=== PATIENT | female | born 1990 | race American Indian/Alaskan Native ===

== ENCOUNTER 2020-01-10 05:56 | Day surgery (SDC) | payer OTHER ==
[~2020-01-10 05:56] MED LIST: SODIUM CHLORIDE 0.9% 1000 ML 1,000 ML, EPINEPHrine/PF 1:1,000 1 MG, LIDOCAINE 1% 20 mL ... IJ SCH
[2020-01-10] MEDS ORDERED: ceFAZolin/Water 2 GM/20 ML 2 GM/20 ML SYRINGE IV NR (06:00)
[2020-01-10] MEDS ORDERED: LACTATED RINGERS 1,000 ML IV SCH (07:00)
--- NOTE | 2020-01-10 07:03 | Anesthesia Day of Surgery ---
Anesthesia Day of Surgery - Day of Surgery Patient Examined: Yes Patient H&P Reviewed: Yes Patient is NPO: Yes
[2020-01-10] MEDS ORDERED: ACETAMINOPHEN 500 MG TAB PO ONE (07:04)
[2020-01-10] MEDS ORDERED: MAGNESIUM OXIDE 400 MG TAB PO ONE (07:04)
[2020-01-10] MEDS ORDERED: ONDANSETRON 4 MG/2 ML INJ IV PRN (07:04)
--- NOTE | 2020-01-10 07:08 | Anesthesia Consultation ---
Anesthesia Consult and Med Hx Date of service: 01/10/20 - Airway Anesthetic Teeth Evaluation: Good ROM Head & Neck: Adequate Mental/Hyoid Distance: Adequate Mallampati Class: Class III Intubation Access Assessment: Probably Good - Pre-Operative Health Status ASA Pre-Surgery Classification: ASA2 Proposed Anesthetic Plan: General - Central Nervous System Hx Psychiatric Problems: No - Hematic Hx Anemia: Yes (LAST HGB 12.9 (12/19/2019)) - Other Systems Hx Alcohol Use: Yes ([facility]) Hx Substance Use: No Hx Cancer: No
[2020-01-10] MEDS ORDERED: LIDOCAINE 1%/EPINEPHRINE 1:100,000 VIAL (20 ML) INFILTRATI ONE ×2 (07:15→09:23)
[2020-01-10] MEDS ORDERED: ROCURONIUM 50 MG/5 ML INJ IV ONE ×2 (07:28→09:35)
[2020-01-10] MEDS ORDERED: fentaNYL 100 MCG/2 ML INJ ONE (07:28)
[2020-01-10] MEDS ORDERED: ONDANSETRON 4 MG/2 ML INJ ONE (07:28)
[2020-01-10] MEDS ORDERED: LIDOCAINE MPF (2%) 20 MG/1 ML VIAL 5 ML ONE (07:28)
[2020-01-10] MEDS ORDERED: dexAMETHasone 20 MG/5 ML VIAL ONE (07:28)
[2020-01-10] MEDS ORDERED: HYDROmorphone 1 MG/1 ML INJ ONE (07:28)
[2020-01-10] MEDS ORDERED: propofoL 200 MG/20 ML VIAL IV ONE (07:28)
[2020-01-10] MEDS ORDERED: CELECOXIB 200 MG CAP PO NR (08:00)
[2020-01-10] MEDS ORDERED: MIDAZOLAM 2 MG/2 ML INJ IV NR (08:00)
[2020-01-10] MEDS ORDERED: GABAPENTIN 300 MG CAP PO NR (08:00)
[2020-01-10] MEDS ORDERED: PHENYLEPHRINE/NS 1,000 MCG/10 ML SYRINGE (OR USE) IV ONE ×2 (09:20→12:13)
[2020-01-10] MEDS ORDERED: SODIUM CHLORIDE 0.9% IRR 1,500 ML BOTTLE IR ONE (09:23)
[2020-01-10] MEDS ORDERED: methOCARBAMOL 1,000 MG in SODIUM CHLORIDE 0.9% 250ML 250 ML IV STA (13:41)
[2020-01-10] MEDS: HYDROmorphone 1 MG/1 ML INJ IV PRN ×3 (13:45→14:10)
--- NOTE | 2020-01-10 13:47 | Operative Report ---
Operative Report Operative Report: Plastic Surgery Operative Note Preoperative Diagnosis: Unacceptable cosmetic appearance Postopertive Diagnosis: Same Procedure: Bilateral mastopexy; Full lipoabdominoplasty Surgeon: Dr. Missy Veliz Pecan Gatherer: Marisel Fernandez CFA Anesthesia: General endotracheal EBL: Minimal Indications: This patient is a 29 year old AAF who presented with complaint of breast drooping since having children. She was also interested in removing excess fat and skin of the lower abdomen. A breast lift with implant exchange was recommended with a full lipoabdominoplasty. We discussed the benefits and risks of surgery including implant rupture, infection, capsular contracture, infection, hematoma, seroma, scarring and the need for further surgery. Patient understands and accepts these risks and desires to proceed with surgery. Procedure: After marking in preoperative holding the patient was brought into the operating room and placed supine on the OR table. After induction of adequate general endotracheal anesthesia, the patient's chest and abdomen were prepped and draped in the usual sterile surgical fashion. To begin, markings were refreshed and 1% lidocaine with epinephrine was injected into the incisions. For the breast procedure, using a tailor-tacking approach, excess skin of the breast and nipple was marked and de-epithelialized. The medial and lateral breast pillars of breast tissue were then plicated in the midline using 2-0 Monocryl suture. We then began a 3-layered closure with 3-0 Monoderm Quill and sealed all incisions with Dermabond. Attention was turned to the lipoabdominoplasty portion of the procedure. Using an 11 blade, cannula entry incisions were made in the lower abdomen, and 3 L of tumescent solution was infiltrated into the tissues of the abdomen and flanks. Power assisted liposcution was performed until aspirate was blood-tinged, for a total of 2.5 cc of fat and 780 g of tissue removed. We then began the tummy tuck portion of the procedure, creating a lower abdominal incision using a 10 blade, which was carried through subcutaneous tissue using the electrocautery. Once adequately dissected, we began to repair the rectus diastasis, which measured 8cm at its widest point near the umbilicus. A 19 Fr Bhaskar drain was then placed and secured with a 2-0 Nylon suture and the excess skin was then marked and excised with a No. 10 blade. We began closure of her incisions in 3 layers beginning with a PDO Quill suture to approximate Frank's fascia follwed by 3-0 Monoderm Quill in 2 layers. The umbilicus was delivered through the anterior abdominal flap and secured in place using 2-0 and 4-0 Monocryl suture. Telfa and tegaderm dressings were then placed on the breasts along with ABD pads to the abdomen, followed by a compression garment and abdominal binder. Patient was then awakened from general anesthesia and transferred to PACU in stable condition. There were no complications. All sponge, needle and instrument counts were correct at the end of the case.
[2020-01-10 15:02] VITALS: BP 123/79
--- NOTE | 2020-01-10 16:39 | Post Anesthesia Evaluation ---
- Post Anesthesia Evaluation Patient Participated: Yes Airway Patent: Yes Stable Respiratory Function: Yes Nausea/Vomiting: No Temp > 96.8F: Yes Pain Manageable: Yes Adequeate Hydration: Yes Anesthesia Complications: No Block Receding Appropriately: Not Applicable Patient on Ventilator: No
== END 2020-01-10 15:50 | disposition home or self-care (01) ==
LOC: OR 05:56
PROVIDERS: ATTEND Plastic Surgery
DX: Z41.1 Encounter for cosmetic surgery (principal); Z72.89 Other problems related to lifestyle; Z98.890 Other specified postprocedural states; Z80.3 Family history of malignant neoplasm of breast; Z86.2 Personal history of diseases of the blood and blood-forming organs and certain disorders involving the immune mechanism
CPT/HCPCS: 15877; 17999; 19316; 81025; J0171; J0690; J1100; J1170; J2250; J2370; J2405; J2704; J2800; J3010; J7030; J7050; J7120